=== PATIENT | female | born 1965 | race Caucasian/White ===

== ENCOUNTER → 2016-12-20 | Outpatient (CLI) | payer OTHER ==
--- NOTE | 2016-12-22 09:05 | MM ---
Reason for exam: screening (asymptomatic). Last mammogram was performed 1 year and 3 months ago. History: Patient is postmenopausal. Physical Findings: A clinical breast exam by your physician is recommended on an annual basis and results should be correlated with mammographic findings. MG Screening Mammo w CAD Bilateral CC and MLO view(s) were taken. Prior study comparison: September 04, 2015, bilateral MG screening mammo w CAD. May 08, 2014, bilateral MG screening mammo w CAD. The breast tissue is heterogeneously dense. This may lower the sensitivity of mammography. No significant changes when compared with prior studies. ASSESSMENT: Benign, BI-RAD 2 RECOMMENDATION: Routine screening mammogram of both breasts in 1 year.
== END | disposition home or self-care (01) ==
LOC: RADMAMWWP 16:32
PROVIDERS: ATTEND Obstetrics & Gynecology
DX: Z12.31 Encounter for screening mammogram for malignant neoplasm of breast (principal)

== ENCOUNTER → 2017-02-17 | Outpatient (CLI) | payer OTHER ==
--- NOTE | 2017-02-17 12:07 | XR ---
EXAMINATION TYPE: XR chest 2V DATE OF EXAM: 02/17/2017 11:50 AM COMPARISON: NONE TECHNIQUE: PA and lateral views submitted. HISTORY: Cough FINDINGS: The lungs are clear and there is no pneumothorax, pleural effusion, or focal pneumonia. Hyperinflat ion suggests COPD. IMPRESSION: 1. No acute process.
[2017-02-17 12:42] LABS: Basophils % (A) 1 %; CH 29.3; CHCM 32.5; Eosinophils # (A) 0.2 k/uL (0-0.7); Eosinophils % (A) 2 %; HCT 40.5 % (34.0-46.0); HDW 2.66; HGB 13.2 gm/dL (11.4-16.0); Luc # (Auto) 0.11; Luc % (Auto) 2; Lymphocytes # (A) 1.6 k/uL (1.0-4.8); Lymphocytes % (A) 24 %; MCH 29.6 pg (25.0-35.0); MCHC 32.6 g/dL (31.0-37.0); MCV 90.8 fL (80.0-100.0); Mean Platelet Volume 7.7; Monocytes # (A) 0.3 k/uL (0-1.0); Monocytes % (A) 5 %; Neutrophils # (A) 4.5 k/uL (1.3-7.7); Neutrophils % (A) 67 %; RBC 4.46 m/uL (3.80-5.40); WBC 6.7 k/uL (3.8-10.6); WBC (Perox) 7.23
== END | disposition home or self-care (01) ==
LOC: RADXRMAIN 11:21
PROVIDERS: ATTEND Allergy & Immunology
DX: Z09 Encounter for follow-up examination after completed treatment for conditions other than malignant neoplasm (principal); Z87.891 Personal history of nicotine dependence
CPT/HCPCS: 71020; 85025

== ENCOUNTER 2017-04-19 20:49 | Emergency (ER) | payer OTHER ==
[2017-04-19 21:18] VITALS: BP 141/77; PULSE 86; RESP 18; TEMP 98.6
--- NOTE | 2017-04-19 22:11 | XR ---
EXAM: XR Left Wrist, 2 Views CLINICAL HISTORY: Reason: Pain TECHNIQUE: Frontal and lateral views of the left wrist. COMPARISON: No relevant prior studies available. FINDINGS: Bones/joints: Unremarkable. No acute fracture. No dislocation. Soft tissues: Unremarkable. No radiopaque foreign body. IMPRESSION: No acute osseous abnormality of the left wrist.
--- NOTE | 2017-04-19 22:21 | ED ---
Extremity Problem HPI - General Chief complaint: Extremity Problem,Nontraumatic Stated complaint: left wrist injury Time Seen by Provider: 04/19/17 21:45 Source: patient, RN notes reviewed, old records reviewed Mode of arrival: ambulatory Limitations: no limitations - History of Present Illness Initial comments: This is a 51-year-old female presenting to emergency department with 2 weeks of left lateral wrist pain. 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 Patient reports that the pain is worse with flexion and extension of her thumb. Patient states that mainly over the radial head which she has the pain. Denies any fever or chills or other associated symptoms. states that she has no numbness or tingling down her hands or fingers. - Related Data Home Medications Medication Instructions Recorded Confirmed Latanoprost Ophth [Xalatan 0.005%] 1 drops BOTH EYES HS 06/22/15 04/19/17 Meloxicam [Mobic] 7.5 mg PO HS 06/22/15 04/19/17 Atorvastatin Calcium [Lipitor] 10 mg PO HS 02/19/16 04/19/17 DULoxetine HCL [Cymbalta] 30 mg PO BID 02/19/16 04/19/17 oxyCODONE HCL/ACETAMINOPHEN 1 tab PO Q4-6H PRN 03/10/16 04/19/17 [Percocet 5-325 mg] Budesonide/Formoterol Fumarate 2 puff INHALATION RT-BID 04/19/17 04/19/17 [Symbicort 160-4.5 Mcg Inhaler] Previous Rx's Medication Instructions Recorded Ibuprofen [Motrin] 600 mg PO Q6HR PRN #20 tab 04/19/17 traMADol HCl [Ultram] 50 mg PO Q4H PRN #15 tab 04/19/17 Allergies Allergy/AdvReac Type Severity Reaction Status Date / Time cat dander Allergy Unknown Verified 04/19/17 22:14 celery Allergy Unknown Verified 04/19/17 22:14 grass pollen Allergy Unknown Verified 04/19/17 22:14 tree and shrub pollen Allergy Unknown Verified 04/19/17 22:14 tree nut Allergy Unknown Verified 04/19/17 22:14 TUNA FISH Allergy Unknown Uncoded 04/19/17 22:14 Review of Systems ROS Statement: Those systems with pertinent positive or pertinent negative responses have been documented in the HPI. ROS Other: All systems not noted in ROS Statement are negative. Past Medical History Past Medical History: Hyperlipidemia, Osteoarthritis (OA), Rheumatoid Arthritis (RA) Additional Past Medical History / Comment(s): migraines, see Dr Sánchez H&P, "fainting spells", frequent urination depression anxiety History of Any Multi-Drug Resistant Organisms: None Reported Past Surgical History: Section, Tubal Ligation Past Anesthesia/Blood Transfusion Reactions: No Reported Reaction Past Psychological History: Anxiety, Depression Smoking Status: Current every day smoker Past Alcohol Use History: None Reported Additional Past Alcohol Use History / Comment(s): smokes 1/2 PPD, has smoked for >20 yrs Past Drug Use History: None Reported - Past Family History Mother Family Medical History: No Reported History General Exam - General Exam Comments Initial Comments: Pleasant 51-year-old female. No acute distress. Limitations: no limitations General appearance: alert, in no apparent distress Head exam: Present: atraumatic, normocephalic, normal inspection Eye exam: Present: normal appearance, PERRL, EOMI. Absent: scleral icterus, conjunctival injection, periorbital swelling ENT exam: Present: normal exam, mucous membranes moist Neck exam: Present: normal inspection. Absent: tenderness, meningismus, lymphadenopathy Respiratory exam: Present: normal lung sounds bilaterally. Absent: respiratory distress, wheezes, rales, rhonchi, stridor Cardiovascular Exam: Present: regular rate, normal rhythm, normal heart sounds. Absent: systolic murmur, diastolic murmur, rubs, gallop, clicks GI/Abdominal exam: Present: soft, normal bowel sounds. Absent: distended, tenderness, guarding, rebound, rigid Extremities exam: Present: normal inspection, full ROM, normal capillary refill , other (Patient is tender over the left radial head and thumb. Positive Bobo test consistent with de Quervain's tenosynovitis.). Absent: tenderness, pedal edema, joint swelling, calf tenderness Back exam: Present: normal inspection Neurological exam: Present: alert, oriented X3, CN II-XII intact Psychiatric exam: Present: normal affect Skin exam: Present: warm, dry, intact, normal color. Absent: rash Course Vital Signs 04/19/17 21:15 Temperature 98.6 F Pulse Rate 86 Respiratory 18 Rate Blood Pressure 141/77 O2 Sat by Pulse 97 Oximetry Medical Decision Making - Medical Decision Making This is-year-old [employer] chief complaint of left thumb and wrist pain for the past 2 weeks. 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 Patient has a positive Bobo's test consistent with de Quervain's tenosynovitis. X-rays reviewed and negative for any acute process. Patient was placed in a small thumb spica splint. Patient has been advised to take anti-inflammatory medicine apply ice over the area. Discussed that she can also see orthopedic physician for a proper splint bending. Patient understands treatment plan will comply. Return parameters were discussed. - Radiology Data Radiology results: report reviewed X-ray negative for any acute process. Disposition Clinical Impression: De Quervain's tenosynovitis, left Disposition: HOME SELF-CARE Condition: Good Instructions: De Quervain Disease (ED), Tenosynovitis (ED) Additional Instructions: Patient has a follow-up with orthopedic physician. Take medication anti- inflammatory medicine. Return to the emergency department if any alarming signs or symptoms occur. Prescriptions: Ibuprofen [Motrin] 600 mg PO Q6HR PRN #20 tab PRN Reason: Pain traMADol HCl [Ultram] 50 mg PO Q4H PRN #15 tab PRN Reason: Pain Referrals: Mendy Thomas MD [Primary Care Provider] - 1-2 days Stevie Torrez DO [Doctor of Osteopathic Medicine] - 1-2 days Time of Disposition: 22:19
== END 2017-04-19 22:30 | disposition home or self-care (01) ==
LOC: EC 20:49
DX: M65.4 Radial styloid tenosynovitis [de Quervain] (principal); E78.5 Hyperlipidemia, unspecified; M19.90 Unspecified osteoarthritis, unspecified site; F32.9 Major depressive disorder, single episode, unspecified; F17.200 Nicotine dependence, unspecified, uncomplicated; Z79.1 Long term (current) use of non-steroidal anti-inflammatories (NSAID); Z79.51 Long term (current) use of inhaled steroids; Z79.899 Other long term (current) drug therapy
CPT/HCPCS: 99283

== ENCOUNTER 2017-12-31 22:48 | Emergency (ER) | payer OTHER ==
[2017-12-31 23:00] VITALS: BP 131/85; PULSE 84; RESP 20; TEMP 98.3
[2017-12-31] MEDS ORDERED: KETOROLAC 60 MG/2 ML VIAL IM STA (23:05)
--- NOTE | 2017-12-31 23:08 | ED ---
General Adult HPI - General Chief complaint: Extremity Problem,Nontraumatic Stated complaint: Hand Injury/pain Time Seen by Provider: 12/31/17 23:00 Source: patient, RN notes reviewed Mode of arrival: ambulatory Limitations: no limitations - History of Present Illness Initial comments: This is a 52-year-old female presents emergency Department complaining of some right third MCP pain. Patient states she's been doing the job all week and she uses the back of her hand to pull material tight and she thinks she has strained that joint because there is a little bit swollen and tender to palpation. Patient thinks there is no way she could've possibly broke and he think she never had any direct trauma to that area. Patient denies any rate can the skin. Patient denies any redness. Patient denies any fever chills per patient denies any other problems at this time. - Related Data Home Medications Medication Instructions Recorded Confirmed Latanoprost Ophth [Xalatan 0.005%] 1 drops BOTH EYES HS 06/22/15 12/31/17 Meloxicam [Mobic] 7.5 mg PO HS 06/22/15 12/31/17 Atorvastatin Calcium [Lipitor] 10 mg PO HS 02/19/16 12/31/17 DULoxetine HCL [Cymbalta] 30 mg PO BID 02/19/16 12/31/17 oxyCODONE HCL/ACETAMINOPHEN 1 tab PO Q4-6H PRN 03/10/16 12/31/17 [Percocet 5-325 mg] Budesonide/Formoterol Fumarate 2 puff INHALATION RT-BID 04/19/17 12/31/17 [Symbicort 160-4.5 Mcg Inhaler] Previous Rx's Medication Instructions Recorded Ibuprofen [Motrin] 600 mg PO Q6HR PRN #20 tab 04/19/17 Allergies Allergy/AdvReac Type Severity Reaction Status Date / Time cat dander Allergy Unknown Verified 04/19/17 22:14 celery Allergy Unknown Verified 04/19/17 22:14 grass pollen Allergy Unknown Verified 04/19/17 22:14 tree and shrub pollen Allergy Unknown Verified 04/19/17 22:14 tree nut Allergy Unknown Verified 04/19/17 22:14 TUNA FISH Allergy Unknown Uncoded 04/19/17 22:14 Review of Systems ROS Statement: Those systems with pertinent positive or pertinent negative responses have been documented in the HPI. ROS Other: All systems not noted in ROS Statement are negative. Past Medical History Past Medical History: Hyperlipidemia, Osteoarthritis (OA), Rheumatoid Arthritis (RA) Additional Past Medical History / Comment(s): migraines, see Dr Sánchez H&P, "fainting spells", frequent urination depression anxiety History of Any Multi-Drug Resistant Organisms: None Reported Past Surgical History: Section, Tubal Ligation Past Anesthesia/Blood Transfusion Reactions: No Reported Reaction Past Psychological History: Anxiety, Depression Smoking Status: Current every day smoker Past Alcohol Use History: None Reported Past Drug Use History: None Reported - Past Family History Mother Family Medical History: No Reported History General Exam - General Exam Comments Initial Comments: GENERAL Patient is well-developed and well-nourished. Patient is in mild distress. EYES Patient's pupils are equal and round. Extraocular motion is intact SKIN Unremarkable NEURO The patient is alert and oriented 3 PYSCH Patient has normal interpersonal interactions. MUSCULOSKELETAL Right hand at the third MCP is slightly tender to touch and mildly swollen. There is no redness. Patient has full range of motion. Limitations: no limitations Course Vital Signs 12/31/17 22:57 Temperature 98.3 F Pulse Rate 84 Respiratory 20 Rate Blood Pressure 131/85 O2 Sat by Pulse 95 Oximetry Disposition Clinical Impression: Hand sprain Disposition: HOME SELF-CARE Condition: Good Instructions: Sprain (ED) Additional Instructions: Patient should take 600 mg of Motrin every 6 hours. Patient should not do a job that entails any duress to that right hand Referrals: Benito Hernandez MD [Primary Care Provider] - 1-2 days Time of Disposition: 23:06
== END 2017-12-31 23:36 | disposition home or self-care (01) ==
LOC: EC 22:48
DX: S63.91XA Sprain of unspecified part of right wrist and hand, initial encounter (principal); E78.5 Hyperlipidemia, unspecified; M06.9 Rheumatoid arthritis, unspecified; F32.9 Major depressive disorder, single episode, unspecified; F41.9 Anxiety disorder, unspecified; F17.200 Nicotine dependence, unspecified, uncomplicated; Z79.1 Long term (current) use of non-steroidal anti-inflammatories (NSAID); Z79.51 Long term (current) use of inhaled steroids; Z79.899 Other long term (current) drug therapy; Z91.018 Allergy to other foods; Z91.048 Other nonmedicinal substance allergy status; Z91.09 Other allergy status, other than to drugs and biological substances
CPT/HCPCS: 99283; 96372; J1885

== ENCOUNTER 2018-02-21 11:59 | Day surgery (SDC) | payer OTHER ==
[2018-02-16 13:31] VITALS: BMI 21.9
[~2018-02-21 11:59] MED LIST: LACTATED RINGERS 1,000 ML IV SCH
[2018-02-21 12:53] VITALS: RESP 18; TEMP 97.9
[2018-02-21] MEDS ORDERED: LIDOCAINE 1% 20 ML VIAL (10MG/ML) FOR IV START INTRADERMA ONE (12:55)
[2018-02-21] MEDS ORDERED: LIDOCAINE 1% INJ 10MG/ML (20 ML MDV) ONE (13:46)
[2018-02-21] MEDS ORDERED: PROPOFOL 10 MG/ML 20 ML VIAL IV ONE (13:46)
--- NOTE | 2018-02-21 14:29 | P.PCN ---
Date of Procedure: 02/21/18 Procedure(s) Performed: Procedure: Colonoscopy and biopsy. Preoperative diagnosis: Intermittent diarrhea and rectal bleeding. Postoperative diagnosis: 1. Low-grade internal hemorrhoids not bleeding at the time of this exam, otherwise, exam to the cecum within normal limits. 2. Biopsies obtained from the right colon to rule out microscopic colitis. Preparation: HalfLytely prep. Sedation: Was provided by anesthesia. Brief clinical history: The patient is a 52-year-old female who is referred for this evaluation because of intermittent diarrhea since April of last year with intermittent episodes of rectal bleeding. This evaluation to assess for inflammatory bowel disease or neoplasia. Procedure: With the patient on her left lateral decubitus position and after informed consent and adequate sedation, the perianal area was inspected and it did not show any fissures or fistulas. There were no masses felt on digital rectal examination. The Olympus CFQ 160L video colonoscope was then inserted in the rectum in the usual fashion and advanced to the cecum. I was not able to intubate the ileocecal valve. The colon did not show any edema, erythema, friability, ulceration, exudation or spontaneous bleeding. No polyps or tumors were seen or any obvious diverticular disease. I obtained biopsies from the right colon. Low-grade internal hemorrhoids were noted upon withdrawing the endoscope with no evidence of bleeding at the time of this exam. The patient tolerated the procedure well. Plan: The patient was reassured. Discussed dietary measures and local care for hemorrhoids. Further plans based on her course and biopsy results. She will follow-up with you as planned and we would be happy to see in the future if needed. For screening for colon cancer I recommended repeat exam in 10 years.
[2018-02-21 14:41] VITALS: BP 111/77; PULSE 80
== END 2018-02-21 15:17 | disposition home or self-care (01) ==
LOC: ORWHC2ENDO 11:59
DX: R19.7 Diarrhea, unspecified (principal); K64.8 Other hemorrhoids; R19.4 Change in bowel habit; M19.90 Unspecified osteoarthritis, unspecified site; E78.5 Hyperlipidemia, unspecified; J44.9 Chronic obstructive pulmonary disease, unspecified; F17.200 Nicotine dependence, unspecified, uncomplicated; Z79.1 Long term (current) use of non-steroidal anti-inflammatories (NSAID); Z79.891 Long term (current) use of opiate analgesic; Z79.51 Long term (current) use of inhaled steroids; Z79.899 Other long term (current) drug therapy
CPT/HCPCS: 81025; 88305; 45380; J2001; J2704

== ENCOUNTER 2018-07-21 20:46 | Emergency (ER) | payer OTHER ==
[2018-07-21 20:59] VITALS: BP 113/83; PULSE 94; RESP 18; TEMP 98
--- NOTE | 2018-07-21 21:24 | ED ---
Lower Extremity Injury HPI - General Chief Complaint: Extremity Injury, Lower Stated Complaint: Knee Pain Time Seen by Provider: 07/21/18 21:04 Source: patient Mode of arrival: ambulatory Limitations: no limitations - History of Present Illness Initial Comments: Gris is a 52 yo female who presents to the ED today for evaluation of left knee pain. Patient reports that earlier today she was walking her dog and not paying attention to where she was walking when she tripped, she did not fall to the ground but felt a sudden pain in her left knee. Patient reports that since that time she has been resting her knee but is experiencing persistent throbbing pain in the knee. Patient reports approximately 4 years ago she had a knee injury in which she dislocated her patella and subsequently had to have a arthroscopy and ligamentous repair of the same knee that she injured today. Patient states that she has not tried to ice or elevate the leg. She has not taken Tylenol Motrin. Patient reports that she suffers from chronic diarrhea and that both Tylenol and Motrin cause her to have blood in her stool. She states that she can only take Percocet for pain which she has a prescription for home, however she did not take any prior to arrival. - Related Data Home Medications Medication Instructions Recorded Confirmed Latanoprost Ophth [Xalatan 0.005%] 1 drops BOTH EYES HS 06/22/15 02/16/18 DULoxetine HCL [Cymbalta] 30 mg PO DAILY 02/19/16 02/16/18 Budesonide/Formoterol Fumarate 2 puff INHALATION BID 04/19/17 02/16/18 [Symbicort 160-4.5 Mcg Inhaler] Meloxicam [Mobic] 15 mg PO DAILY 02/16/18 02/16/18 oxyCODONE HCL/ACETAMINOPHEN 1 tab PO QID PRN 02/16/18 02/16/18 [Percocet 7.5-325 mg] Allergies Allergy/AdvReac Type Severity Reaction Status Date / Time cat dander Allergy Unknown Verified 07/21/18 20:59 celery Allergy Unknown Verified 07/21/18 20:59 grass pollen Allergy Unknown Verified 07/21/18 20:59 tree and shrub pollen Allergy Unknown Verified 07/21/18 20:59 tree nut Allergy Unknown Verified 07/21/18 20:59 TUNA FISH Allergy Unknown Uncoded 08/31/18 20:59 Review of Systems ROS Statement: Those systems with pertinent positive or pertinent negative responses have been documented in the HPI. ROS Other: All systems not noted in ROS Statement are negative. Past Medical History Past Medical History: COPD, Osteoarthritis (OA) Additional Past Medical History / Comment(s): . History of Any Multi-Drug Resistant Organisms: None Reported Past Surgical History: Section, Orthopedic Surgery Additional Past Surgical History / Comment(s): left knee arthroscopy Past Anesthesia/Blood Transfusion Reactions: Postoperative Nausea & Vomiting ( PONV) Past Psychological History: Anxiety, Depression Smoking Status: Current every day smoker Past Alcohol Use History: None Reported Past Drug Use History: None Reported - Past Family History Mother Family Medical History: No Reported History General Exam - General Exam Comments Initial Comments: GENERAL: Patient is well-developed and well-nourished. Patient is nontoxic and well- hydrated and is in no distress. HENT: Normocephalic, Atraumatic. Neck is soft and supple. No significant lymphadenopathy is noted. Oropharynx is clear. Neck has full range of motion without eliciting any pain. EYES: The sclera were anicteric and conjunctiva were pink and moist. Extraocular movements were intact and pupils were equal round and reactive to light. Eyelids were unremarkable. PULMONARY: Unlabored respirations. Good breath sounds bilaterally. No audible rales rhonchi noted. Mild wheezing noted CARDIOVASCULAR: There is a regular rate and rhythm without any murmurs gallops or rubs. ABDOMEN: Soft and nontender with normal bowel sounds. SKIN: Skin is clear with no lesions or rashes and otherwise unremarkable. Skin changes on hands consistent with tobacco smoking NEUROLOGIC: Patient is alert and oriented x3. Motor and sensory are also intact. Normal speech, volume and content. Symmetrical smile. NOrmal strength in bilateral lower extremities MUSCULOSKELETAL: Normal extremities with adequate strength and full range of motion. No lower extremity swelling or edema. No calf tenderness. Negative anterior and posterior drawer signs, no ligamentous laxity can be elicited on exam Negative lochman and sarah tests LYMPHATICS: No significant lymphadenopathy is noted PSYCHIATRIC: Normal psychiatric evaluation. Limitations: no limitations Limitations: no limitations Course Vital Signs 07/21/18 20:55 Temperature 98 F Pulse Rate 94 Respiratory 18 Rate Blood Pressure 113/83 O2 Sat by Pulse 98 Oximetry Medical Decision Making - Medical Decision Making The patient was seen and evaluated, history obtained from patient Patient with a history of ligamentous injury to that knee presenting with pain after a trip in which she applied an awkward force but did not fall Minimal concern for bony injury, however will obtain an xray Offered the patient Motrin/Tylenol however the patient declined stating that she cannot take these, she only takes percocet Discussed supportive care including rest, ice, compression and elevation with patient, patient was given an ice pack X-rays with no acute fracture or dislocation noted Patient's lower extremity is neurovascularly intact, mechanism of injury is not consistent with a posterior knee dislocation I have no concern for vascular injury Results were discussed with patient who expresses relief. I advised the patient that x-rays do not rule out ligamentous or meniscal injury and that she should follow-up with her orthopedic surgeon she has seen in the past if she has persistent pain. Advised the patient that she can treat her pain with rest , ice, compression, elevation and whatever pain medication she can tolerate home. All questions pertaining care were answered best my ability, return parameters were discussed and the patient was discharged home in stable condition. Disposition Clinical Impression: Left knee pain Disposition: HOME SELF-CARE Condition: Good Instructions: Knee Sprain (ED), Knee Pain (ED) Is patient prescribed a controlled substance at d/c from ED?: No Referrals: Benito Hernandez MD [Primary Care Provider] - 1-2 days Time of Disposition: 21:51
--- NOTE | 2018-07-21 21:33 | XR ---
EXAMINATION TYPE: XR knee 4V LT DATE OF EXAM: 07/21/2018 COMPARISON: NONE HISTORY: Pain and injury TECHNIQUE: 4 views FINDINGS: There is no sign of fracture nor dislocation. Joint spaces are normal. There is no sign of joint effusion. IMPRESSION: Normal left knee.
== END 2018-07-21 22:02 | disposition home or self-care (01) ==
LOC: EC 20:46
DX: M25.562 Pain in left knee (principal); R19.7 Diarrhea, unspecified; J44.9 Chronic obstructive pulmonary disease, unspecified; F41.9 Anxiety disorder, unspecified; F32.9 Major depressive disorder, single episode, unspecified; M19.90 Unspecified osteoarthritis, unspecified site; F17.200 Nicotine dependence, unspecified, uncomplicated; Z79.51 Long term (current) use of inhaled steroids; Z79.899 Other long term (current) drug therapy; Z79.1 Long term (current) use of non-steroidal anti-inflammatories (NSAID); Z91.09 Other allergy status, other than to drugs and biological substances; Z91.018 Allergy to other foods; Z91.013 Allergy to seafood; W18.40XA Slipping, tripping and stumbling without falling, unspecified, initial encounter; Y93.K1 Activity, walking an animal
CPT/HCPCS: 99283

== ENCOUNTER → 2018-08-22 | Outpatient (CLI) | payer OTHER ==
--- NOTE | 2018-08-22 14:39 | XR ---
Thoracic spine HISTORY: Back pain 2 views of the thoracic spine submitted on 3 images There is a gentle S-shaped thoracic scoliosis. Mild multilevel spondylosis is present. Thoracic verte bral bodies show preserved height, alignment, and bone mineralization. Disc spaces are maintained. IMPRESSION: Thoracic spondylosis, mild spinal curvature.
== END | disposition home or self-care (01) ==
LOC: RADXRMAIN 10:50
PROVIDERS: ATTEND Internal Medicine
DX: M47.814 Spondylosis without myelopathy or radiculopathy, thoracic region (principal)
CPT/HCPCS: 72070

== ENCOUNTER 2018-11-04 11:24 | Emergency (ER) | payer OTHER ==
[2018-11-04 11:37] VITALS: TEMP 98.2
--- NOTE | 2018-11-04 12:26 | XR ---
EXAMINATION TYPE: XR shoulder complete RT , 3 VIEWS DATE OF EXAM ORDERED: 11/04/2018 HISTORY: Pain. COMPARISON: None. FINDINGS: No fracture, dislocation or other acute osseous lesion is seen. IMPRESSION: NO ACUTE OSSEOUS LESION.
--- NOTE | 2018-11-04 12:54 | ED ---
General Adult HPI - General Chief complaint: Extremity Injury, Upper Stated complaint: shoulder injury Time Seen by Provider: 11/04/18 11:51 Source: patient, RN notes reviewed Mode of arrival: ambulatory Limitations: no limitations - History of Present Illness Initial comments: Patient 53-year-old female presenting to the emergency room today with chief complaint of pain to the right shoulder. She admits that yesterday she picked up a laundry basket and when she went to stand up hit a doorknob with the shoulder blade on the right side. She states she's had pain since that injury. States it is worse with movements. She states she does take pain medicine at home has not been using ibuprofen. Denies any other complaints or symptoms. Patient denies any recent fever, chills, shortness of breath, chest pain, back pain, abdominal pain, nausea or vomiting, headaches or visual changes, or any other complaints. - Related Data Home Medications Medication Instructions Recorded Confirmed Latanoprost Ophth [Xalatan 0.005%] 1 drops BOTH EYES HS 06/22/15 02/16/18 DULoxetine HCL [Cymbalta] 30 mg PO DAILY 02/19/16 02/16/18 Budesonide/Formoterol Fumarate 2 puff INHALATION BID 04/19/17 02/16/18 [Symbicort 160-4.5 Mcg Inhaler] Meloxicam [Mobic] 15 mg PO DAILY 02/16/18 02/16/18 oxyCODONE HCL/ACETAMINOPHEN 1 tab PO QID PRN 02/16/18 02/16/18 [Percocet 7.5-325 mg] Allergies Allergy/AdvReac Type Severity Reaction Status Date / Time cat dander Allergy Unknown Verified 11/04/18 11:37 celery Allergy Unknown Verified 11/04/18 11:37 grass pollen Allergy Unknown Verified 11/04/18 11:37 tree and shrub pollen Allergy Unknown Verified 11/04/18 11:37 tree nut Allergy Unknown Verified 11/04/18 11:37 TUNA FISH Allergy Unknown Uncoded 11/04/18 11:37 Review of Systems ROS Statement: Those systems with pertinent positive or pertinent negative responses have been documented in the HPI. ROS Other: All systems not noted in ROS Statement are negative. Past Medical History Past Medical History: COPD, Osteoarthritis (OA) Additional Past Medical History / Comment(s): . History of Any Multi-Drug Resistant Organisms: None Reported Past Surgical History: Section, Orthopedic Surgery Additional Past Surgical History / Comment(s): left knee arthroscopy Past Anesthesia/Blood Transfusion Reactions: Postoperative Nausea & Vomiting ( PONV) Past Psychological History: Anxiety, Depression Smoking Status: Current every day smoker Past Alcohol Use History: None Reported Past Drug Use History: None Reported - Past Family History Mother Family Medical History: No Reported History General Exam - General Exam Comments Initial Comments: General: The patient is awake and alert, in no distress, and does not appear acutely ill. Eye: Pupils are equal, round and reactive to light, extra-ocular movements are intact. No nystagmus. There is normal conjunctiva bilaterally. No signs of icterus. Ears, nose, mouth and throat: There are moist mucous membranes and no oral lesions. Neck: The neck is supple, there is no tenderness or JVD. Cardiovascular: There is a regular rate and rhythm. No murmur, rub or gallop is appreciated. Respiratory: Lungs are clear to auscultation, respirations are non-labored, breath sounds are equal. No wheezes, stridor, rales, or rhonchi. Musculoskeletal: Normal appearance the right shoulder obvious deformity. Patient shows limited range of motion due to pain. Tender to palpation over the posterior aspect. Patient shows good range of motion of the right elbow, wrist is able flex and extend. Strength 5/5. Sensation intact. Pulses equal bilaterally 2+. Neurological: A&O x 3. CN II-XII intact, There are no obvious motor or sensory deficits. Coordination appears grossly intact. Speech is normal. Skin: Skin is warm and dry and no rashes or lesions are noted. Psychiatric: Cooperative, appropriate mood & affect, normal judgment. Limitations: no limitations Course Vital Signs 11/04/18 11:35 Temperature 98.2 F Pulse Rate 78 Respiratory 16 Rate Blood Pressure 137/96 O2 Sat by Pulse 97 Oximetry Medical Decision Making - Medical Decision Making Patient's x-ray reviewed and is negative for any acute abnormality. Results were discussed with the patient. Patient advised to ice the affected area. Advised follow-up with orthopedics if symptoms persist over the next week. Advised using ibuprofen Disposition Clinical Impression: Shoulder contusion Disposition: HOME SELF-CARE Condition: Good Instructions: Contusion in Adults (ED) Additional Instructions: Please follow-up in 7-10 days for repeat x-rays if symptoms persist. Please continue to ice elevate the affected area at least 4 times daily for 20 minutes at a time. Please return to emergency room for any other concerns. Is patient prescribed a controlled substance at d/c from ED?: No Referrals: Benito Hernandez MD [Primary Care Provider] - 1-2 days Time of Disposition: 12:54
[2018-11-04 13:37] VITALS: BP 133/92; PULSE 74; RESP 18
== END 2018-11-04 13:30 | disposition home or self-care (01) ==
LOC: EC 11:24
DX: S40.011A Contusion of right shoulder, initial encounter (principal); F32.9 Major depressive disorder, single episode, unspecified; F41.9 Anxiety disorder, unspecified; M19.90 Unspecified osteoarthritis, unspecified site; J44.9 Chronic obstructive pulmonary disease, unspecified; F17.200 Nicotine dependence, unspecified, uncomplicated; Z79.51 Long term (current) use of inhaled steroids; Z79.1 Long term (current) use of non-steroidal anti-inflammatories (NSAID); Z79.899 Other long term (current) drug therapy; Z91.09 Other allergy status, other than to drugs and biological substances; Z91.048 Other nonmedicinal substance allergy status; Z91.018 Allergy to other foods; Z91.013 Allergy to seafood
CPT/HCPCS: 99283

== ENCOUNTER 2019-07-12 20:59 | Emergency (ER) | payer OTHER ==
[2019-07-12 21:09] VITALS: BP 119/83
[2019-07-12] MEDS ORDERED: ONDANSETRON ODT 4 MG TAB PO STA (21:16)
[2019-07-12] MEDS ORDERED: DIPH,PERTUS(ACELL)TETVAC-LF 0.5 ML VIAL IM ONE (21:16)
--- NOTE | 2019-07-12 21:26 | ED ---
Upper Extremity HPI - General Chief Complaint: Extremity Injury, Upper Stated Complaint: Hand injury Time Seen by Provider: 07/12/19 21:11 Source: patient, RN notes reviewed Mode of arrival: ambulatory Limitations: no limitations - History of Present Illness Initial Comments: 53-year-old female presented to the ER for right hand puncture wound. Patient states she was at work piece of plastic punctured her right thumb region. Patient states that it is painful and she became very nauseated from the pain. Patient states his happened in the past. Denies any chest pain no palpitations no abdominal pain. Patient is unsure when her last tetanus was. - Related Data Home Medications Medication Instructions Recorded Confirmed Latanoprost Ophth [Xalatan 0.005%] 1 drops BOTH EYES HS 06/22/15 02/16/18 DULoxetine HCL [Cymbalta] 30 mg PO DAILY 02/19/16 02/16/18 Budesonide/Formoterol Fumarate 2 puff INHALATION BID 04/19/17 02/16/18 [Symbicort 160-4.5 Mcg Inhaler] Meloxicam [Mobic] 15 mg PO DAILY 02/16/18 02/16/18 oxyCODONE HCL/ACETAMINOPHEN 1 tab PO QID PRN 02/16/18 02/16/18 [Percocet 7.5-325 mg] Allergies Allergy/AdvReac Type Severity Reaction Status Date / Time cat dander Allergy Unknown Verified 07/12/19 21:09 celery Allergy Unknown Verified 07/12/19 21:09 grass pollen Allergy Unknown Verified 07/12/19 21:09 tree and shrub pollen Allergy Unknown Verified 07/12/19 21:09 tree nut Allergy Unknown Verified 07/12/19 21:09 TUNA FISH Allergy Unknown Uncoded 07/12/19 21:09 Review of Systems ROS Statement: Those systems with pertinent positive or pertinent negative responses have been documented in the HPI. ROS Other: All systems not noted in ROS Statement are negative. Past Medical History Past Medical History: COPD, Osteoarthritis (OA) Additional Past Medical History / Comment(s): . History of Any Multi-Drug Resistant Organisms: None Reported Past Surgical History: Section, Orthopedic Surgery Additional Past Surgical History / Comment(s): left knee arthroscopy Past Anesthesia/Blood Transfusion Reactions: Postoperative Nausea & Vomiting (PONV) Past Psychological History: Anxiety, Depression Smoking Status: Current every day smoker Past Alcohol Use History: None Reported Past Drug Use History: None Reported - Past Family History Mother Family Medical History: No Reported History General Exam Limitations: no limitations General appearance: alert, in no apparent distress Head exam: Present: atraumatic, normocephalic, normal inspection Respiratory exam: Present: normal lung sounds bilaterally. Absent: respiratory distress, wheezes, rales, rhonchi, stridor Cardiovascular Exam: Present: regular rate, normal rhythm, normal heart sounds. Absent: systolic murmur, diastolic murmur, rubs, gallop, clicks GI/Abdominal exam: Present: soft, normal bowel sounds. Absent: distended, tenderness, guarding, rebound, rigid Extremities exam: Present: other (Right thenar eminence there is a puncture wound and hematoma noted full range of motion neurovascular intact full strength) Neurological exam: Present: alert, oriented X3, CN II-XII intact Skin exam: Present: warm, dry, intact, normal color. Absent: rash Course Vital Signs 07/12/19 21:08 Temperature 98.4 F Pulse Rate 83 Respiratory 18 Rate Blood Pressure 119/83 O2 Sat by Pulse 98 Oximetry Medical Decision Making - Medical Decision Making 53-year-old female presented for puncture wound to her right hand. There is small hematoma there is no signs of infection tetanus is updated. We did discuss signs and symptoms of infection do not feel she needs antibiotics this time. She will follow-up with workman's comp and return for any worsening symptoms. Disposition Clinical Impression: Traumatic hematoma of right hand, Puncture wound of right hand Disposition: HOME SELF-CARE Condition: Stable Instructions (If sedation given, give patient instructions): Puncture Wound (ED) Additional Instructions: Return for any signs or symptoms of infection.Please return to the Emergency Department if symptoms worsen or any other concerns. Is patient prescribed a controlled substance at d/c from ED?: No Referrals: Benito Hernandez MD [Primary Care Provider] - 1-2 days Time of Disposition: 22:03
--- NOTE | 2019-07-12 22:01 | XR ---
EXAMINATION TYPE: XR hand complete RT DATE OF EXAM: 07/12/2019 COMPARISON: NONE HISTORY: Puncture wound. Pain. TECHNIQUE: 3 views FINDINGS: Metacarpals appear intact. I see no fracture nor dislocation. There is no sign of radiopaqu e foreign body. Joint spaces are normal. IMPRESSION: Negative right hand exam.
[2019-07-12 22:25] VITALS: PULSE 86; RESP 16; TEMP 96.9
== END 2019-07-12 22:20 | disposition home or self-care (01) ==
LOC: EC 20:59
DX: S61.431A Puncture wound without foreign body of right hand, initial encounter (principal); R11.0 Nausea; J44.9 Chronic obstructive pulmonary disease, unspecified; M19.90 Unspecified osteoarthritis, unspecified site; F41.9 Anxiety disorder, unspecified; F32.9 Major depressive disorder, single episode, unspecified; F17.200 Nicotine dependence, unspecified, uncomplicated; Z23 Encounter for immunization; Z79.51 Long term (current) use of inhaled steroids; Z79.1 Long term (current) use of non-steroidal anti-inflammatories (NSAID); Z79.899 Other long term (current) drug therapy; Z91.048 Other nonmedicinal substance allergy status; Z91.018 Allergy to other foods; Z91.013 Allergy to seafood; W22.8XXA Striking against or struck by other objects, initial encounter; Y92.69 Other specified industrial and construction area as the place of occurrence of the external cause; Y99.0 Civilian activity done for income or pay
CPT/HCPCS: 90471; 90715; 99283

== ENCOUNTER 2019-12-22 13:11 | Emergency (ER) | payer OTHER ==
[2019-12-22] MEDS ORDERED: methylPREDNISolone SOD SUCCI 125 MG/2 ML VIAL IM ONE (14:47)
[2019-12-22] MEDS ORDERED: IPRATROPIUM-ALBUTEROL 3 ML NEB INHALATION STA (14:47)
--- NOTE | 2019-12-22 15:17 | XR ---
EXAMINATION TYPE: XR chest 2V DATE OF EXAM: 12/22/2019 COMPARISON: 02/17/2017 HISTORY: 54-year-old female with cough TECHNIQUE: PA and lateral views FINDINGS: The cardiomediastinal silhouette, aorta, and pulmonary vasculature are within normal limits. Mild hyp erinflation. Minimal opacity adjacent to the left heart margin. IMPRESSION: Possible underlying COPD. Some minimal opacity adjacent to the cardiac apex could represent some ling ular atelectasis or an early lingular infiltrate.
--- NOTE | 2019-12-22 15:35 | ED ---
ENT HPI - General Chief complaint: ENT Stated complaint: Sore throat Time Seen by Provider: 12/22/19 14:15 Source: patient, RN notes reviewed, old records reviewed Mode of arrival: ambulatory Limitations: no limitations - History of Present Illness Initial comments: 54-year-old female presents emergency room stating she went to excessive sore throat. She reports that it feels the back of her throat is swollen. She reports some pain with swallowing. She denies any choking episodes. Patient states she is also been dealing with a cough. Does have history of COPD and is a smoker. Patient relates that she's had intermittent chills and no specific fevers. Patient has had no other complaints. - Related Data Home Medications Medication Instructions Recorded Confirmed Latanoprost Ophth [Xalatan 0.005%] 1 drops BOTH EYES HS 06/22/15 02/16/18 DULoxetine HCL [Cymbalta] 30 mg PO DAILY 02/19/16 02/16/18 Budesonide/Formoterol Fumarate 2 puff INHALATION BID 04/19/17 02/16/18 [Symbicort 160-4.5 Mcg Inhaler] Meloxicam [Mobic] 15 mg PO DAILY 02/16/18 02/16/18 oxyCODONE HCL/ACETAMINOPHEN 1 tab PO QID PRN 02/16/18 02/16/18 [Percocet 7.5-325 mg] Previous Rx's Medication Instructions Recorded Albuterol Inhaler [Ventolin Hfa 1 - 2 puff INHALATION RT-Q6H PRN 12/22/19 Inhaler] #1 inhaler Azithromycin [Zithromax Z-pack] 250 mg PO DIRECTED #6 tab 12/22/19 predniSONE 50 mg PO DAILY #5 tab 12/22/19 Allergies Allergy/AdvReac Type Severity Reaction Status Date / Time cat dander Allergy Unknown Verified 12/22/19 13:23 celery Allergy Unknown Verified 12/22/19 13:23 grass pollen Allergy Unknown Verified 12/22/19 13:23 tree and shrub pollen Allergy Unknown Verified 12/22/19 13:23 tree nut Allergy Unknown Verified 12/22/19 13:23 TUNA FISH Allergy Unknown Uncoded 12/22/19 13:23 Review of Systems ROS Statement: Those systems with pertinent positive or pertinent negative responses have been documented in the HPI. ROS Other: All systems not noted in ROS Statement are negative. Past Medical History Past Medical History: COPD, Osteoarthritis (OA) Additional Past Medical History / Comment(s): . History of Any Multi-Drug Resistant Organisms: None Reported Past Surgical History: Section, Orthopedic Surgery Additional Past Surgical History / Comment(s): left knee arthroscopy Past Anesthesia/Blood Transfusion Reactions: Postoperative Nausea & Vomiting (PONV) Past Psychological History: Anxiety, Depression Smoking Status: Current every day smoker Past Alcohol Use History: None Reported Past Drug Use History: None Reported - Past Family History Mother Family Medical History: No Reported History General Exam - General Exam Comments Initial Comments: 54-year-old female. Alert and oriented 3. No significant distress. Limitations: no limitations General appearance: alert, in no apparent distress Head exam: Present: atraumatic, normocephalic, normal inspection Eye exam: Present: normal appearance, PERRL, EOMI. Absent: scleral icterus, conjunctival injection, periorbital swelling ENT exam: Present: normal exam, mucous membranes moist. Absent: normal oropharynx (Symptoms are intact. Mildly swollen uvula.) Neck exam: Present: normal inspection. Absent: tenderness, meningismus, lymphadenopathy Respiratory exam: Present: wheezes (Patient has wheezing some right lower lobe.). Absent: normal lung sounds bilaterally, respiratory distress, rales, rhonchi, stridor Cardiovascular Exam: Present: regular rate, normal rhythm, normal heart sounds. Absent: systolic murmur, diastolic murmur, rubs, gallop, clicks GI/Abdominal exam: Present: soft, normal bowel sounds. Absent: distended, tenderness, guarding, rebound, rigid Extremities exam: Present: normal inspection, full ROM, normal capillary refill. Absent: tenderness, pedal edema, joint swelling, calf tenderness Back exam: Present: normal inspection Neurological exam: Present: alert, oriented X3, CN II-XII intact Psychiatric exam: Present: normal affect, normal mood Skin exam: Present: warm, dry, intact, normal color. Absent: rash Course Vital Signs 12/22/19 12/22/19 12/22/19 13:21 14:55 15:04 Temperature 98.5 F Pulse Rate 76 68 72 Respiratory 16 Rate Blood Pressure 133/97 O2 Sat by Pulse 96 Oximetry 12/22/19 15:46 Temperature 97.9 F Pulse Rate 84 Respiratory 18 Rate Blood Pressure 147/96 O2 Sat by Pulse 96 Oximetry Medical Decision Making - Medical Decision Making 54-year-old female with history of COPD, 2 weeks of sore throat and cough congestion. Patient has no fever at this time. Patient have wheezing on exam. Was given IM Solu-Medrol and breathing treatments. On reevaluation she is resting comfortably but has no further wheezing. She does have an erythematous oropharynx. Rapid strep test is negative. Patient's chest x-ray shows concern for possible lingular atelectasis or early infiltrate. Due to patient's coughing or wheezing, and also to cover for sore throat we will treat the Patient with azithromycin. I discussed that she can follow-up with her primary care doctor and also discharging the Patient for short course of steroids. All questions answered. - Lab Data Lab Results 12/22/19 Range/Units 13:32 Group A Strep Rapid Negative (Negative) - Radiology Data Radiology results: report reviewed Possible underlying COPD. Minimal passage the adjacent to the cardiac apex may represent lingular atelectasis or early lingular infiltrate. Disposition Clinical Impression: Pharyngitis, Pneumonia Disposition: HOME SELF-CARE Condition: Good Instructions (If sedation given, give patient instructions): Pharyngitis (ED), Community Acquired Pneumonia (ED) Additional Instructions: Patient advised to take meds as prescribed. Following up with her primary care physician. Patient advised to completely stop smoking. Also using [id number] medication to help with symptoms. Return to emergency department if any alarming signs or symptoms occur. Prescriptions: predniSONE 50 mg PO DAILY #5 tab Albuterol Inhaler [Ventolin Hfa Inhaler] 1 - 2 puff INHALATION RT-Q6H PRN #1 inhaler PRN Reason: Shortness Of Breath Azithromycin [Zithromax Z-pack] 250 mg PO DIRECTED #6 tab Is patient prescribed a controlled substance at d/c from ED?: No Referrals: Benito Hernandez MD [Primary Care Provider] - 1-2 days Time of Disposition: 15:32
[2019-12-22 15:47] VITALS: BP 147/96; PULSE 84; RESP 18; TEMP 97.9
== END 2019-12-22 15:46 | disposition home or self-care (01) ==
LOC: EC 13:11
DX: J18.9 Pneumonia, unspecified organism (principal); J02.9 Acute pharyngitis, unspecified; J44.9 Chronic obstructive pulmonary disease, unspecified; F17.200 Nicotine dependence, unspecified, uncomplicated; M19.90 Unspecified osteoarthritis, unspecified site; F41.9 Anxiety disorder, unspecified; F32.9 Major depressive disorder, single episode, unspecified; Z79.1 Long term (current) use of non-steroidal anti-inflammatories (NSAID); Z79.899 Other long term (current) drug therapy; Z79.51 Long term (current) use of inhaled steroids; Z91.048 Other nonmedicinal substance allergy status; Z91.013 Allergy to seafood
CPT/HCPCS: 94640; 87081; 87430; 71046; 96372; 99284; J2930

== ENCOUNTER → 2020-08-29 | Outpatient (CLI) | payer OTHER ==
--- NOTE | 2020-09-01 09:37 | MM ---
Reason for exam: screening (asymptomatic). Last mammogram was performed 3 years and 8 months ago. History: Patient is postmenopausal. Physical Findings: A clinical breast exam by your physician is recommended on an annual basis and results should be correlated with mammographic findings. MG Screening Mammo w CAD Bilateral CC and MLO view(s) were taken. Prior study comparison: December 20, 2016, bilateral MG screening mammo w CAD. September 04, 2015, bilateral MG screening mammo w CAD. The breast tissue is extremely dense which could obscure a lesion on mammography. Benign appearing bilateral calcifications. There is chronic nodularity in the left breast, stable. No significant changes when compared with prior studies. ASSESSMENT: Benign, BI-RAD 2 RECOMMENDATION: Routine screening mammogram of both breasts in 1 year.
== END | disposition home or self-care (01) ==
LOC: RADMAMWWP 08:39
PROVIDERS: ATTEND Obstetrics & Gynecology
DX: Z12.31 Encounter for screening mammogram for malignant neoplasm of breast (principal)
CPT/HCPCS: 77067

== ENCOUNTER → 2022-11-18 | Outpatient (CLI) | payer OTHER ==
--- NOTE | 2022-11-19 10:54 | XR ---
EXAMINATION TYPE: XR spine complete AP and Lat DATE OF EXAM: 11/18/2022 COMPARISON: NONE HISTORY: 57-year-old female M54.6, M54.2, M54.50 TECHNIQUE: 6 views FINDINGS: Cervical spine: Degenerative grade 1 anterolisthesis C6-C7. Some facet arthropathy throughout the cer vical spine noted. Disc spaces relatively maintained. No predental space widening or prevertebral sof t tissue swelling. Thoracic spine: Accentuated midthoracic kyphosis. Mild degenerative disc disease mid thoracic spine. Vertebral body heights are preserved and alignment is maintained. 12 rib-bearing thoracic vertebral b odies. All pedicles are visualized. Lumbar spine: Accentuated lumbar lordosis. Facet arthropathy mid to lower lumbar spine. Degenerative grade 1 retrolisthesis T12-L1, L1-L3, L2-L3. Vertebral body heights are preserved. IMPRESSION: 1. Cervical spine: Facet arthropathy. Degenerative grade 1 anterolisthesis at C6-C7. 2. Thoracic spine: Accentuated thoracic kyphosis and mild mid thoracic spine degenerative disc diseas e. No vertebral compression collapse or malalignment. 3. Lumbar spine: Degenerative grade 1 retrolisthesis T12-L1, L1-L2, and L2-L3. Accentuated lumbar kin dosis with hypertrophic facet arthropathy mid to lower lumbar spine. No vertebral compression collaps e.
== END | disposition home or self-care (01) ==
LOC: RADXRMAIN 14:38
PROVIDERS: ATTEND Nurse Practitioner Family
DX: M47.812 Spondylosis without myelopathy or radiculopathy, cervical region (principal); M51.34 Other intervertebral disc degeneration, thoracic region; M40.56 Lordosis, unspecified, lumbar region; M47.816 Spondylosis without myelopathy or radiculopathy, lumbar region; M43.12 Spondylolisthesis, cervical region; M43.15 Spondylolisthesis, thoracolumbar region
CPT/HCPCS: 72082

== ENCOUNTER → 2022-11-18 | Outpatient (CLI) | payer OTHER ==
--- NOTE | 2022-11-21 13:37 | MM ---
Reason for Exam: Screening (asymptomatic). Last mammogram was performed 2 year(s) and 2 month(s) ago. Patient History: Menarche at age 13. First Full-Term at age 19. Postmenopausal. Risk Values: Lyudmila 5 year model risk: 0.9%. NCI Lifetime model risk: 5.9%. Prior Study Comparison: 09/04/2015 Bilateral Screening Mammogram, [facility]. 12/20/2016 Bilateral Screening Mammogram, [facility]. 08/29/2020 Bilateral Screening Mammogram, [facility]. Tissue Density: The breast tissue is heterogeneously dense. This may lower the sensitivity of mammography. Findings: Analyzed By CAD. Benign bilateral oil cyst calcifications. Areas of asymmetric density remain unchanged. There is no suspicious group of microcalcifications or new suspicious mass in either breast. Overall Assessment: Benign, BI-RAD 2 Management: Screening Mammogram of both breasts in 1 year. 1. Patient should continue monthly self breast exams. 2. A clinical breast exam by your physician is recommended on an annual basis. 3. This exam should not preclude additional follow-up of suspicious palpable abnormalities. Electronically signed and approved by: Ap Orozco M.D. Radiologist
== END | disposition home or self-care (01) ==
LOC: RADMAMWWP 15:19
PROVIDERS: ATTEND Family Medicine
DX: Z12.31 Encounter for screening mammogram for malignant neoplasm of breast (principal); Z78.0 Asymptomatic menopausal state
CPT/HCPCS: 77067

== ENCOUNTER → 2023-08-29 | Outpatient (CLI) | payer OTHER ==
--- NOTE | 2023-08-29 08:42 | CTL ---
EXAMINATION TYPE: CT Low Dose Lung DATE OF EXAM ORDERED: 08/29/2023 HISTORY: Z87.891 hx tobacco use. Lung cancer screening. Current smoker, [address] DLP: 33.[address] CTDI: 0.9 mGy Automated exposure control for dose reduction was used. SCREENING VISIT: First screening visit COMPARISON: Chest radiograph 12/22/2019 TECHNIQUE: Low dose computed tomography scan was performed through the chest at 1 mm thick sections a nd reconstructed images in multiple planes at 1 mm and [address] DIAGNOSTIC QUALITY: Satisfactory FINDINGS: LUNG NODULES: Medial right lower lobe 2 mm also granuloma (series 6, image 29). No clinically signifi cant pulmonary nodules. LUNGS: COPD: Severity: None Fibrosis: Severity: None Lymph nodes: None Other findings: None RIGHT PLEURAL SPACE: Effusion: None Calcification: None Thickening: None Pneumothorax: None LEFT PLEURAL SPACE: Effusion: None Calcification: None Thickening: None Pneumothorax: None HEART: Heart Size: Normal Coronary Calcification: Moderate Pericardial Effusion: None OTHER FINDINGS: Upper abdomen: None Bony thorax: None Supraclavicular region: None Other: Enlarged right thyroid lobe. IMPRESSION: No clinically significant pulmonary nodule. CT LUNG RAD AND CT CHEST RECOMMENDATION: Lung-Rad 1 Negative: Continue annual screening with LDCT in 12 months. S Modifier (other clinically significant findings): None
== END | disposition home or self-care (01) ==
LOC: RADCTMAIN 07:59
PROVIDERS: ATTEND Internal Medicine
DX: Z12.2 Encounter for screening for malignant neoplasm of respiratory organs (principal); F17.210 Nicotine dependence, cigarettes, uncomplicated
CPT/HCPCS: 71271

== ENCOUNTER 2023-10-31 19:39 | Emergency (ER) | payer OTHER ==
--- NOTE | 2023-10-31 19:48 | ED ---
URI HPI - General Chief Complaint: Upper Respiratory Infection Stated Complaint: congested,headache Time Seen by Provider: 10/31/23 19:47 Source: patient Mode of arrival: ambulatory Limitations: no limitations - History of Present Illness Initial Comments: 58-year-old female presenting with chief complaint of URI-like symptoms ongoing for the last week. She complains of cough, congestion, sore throat, headache, ear pressure. Denies chest pain or difficulty breathing. No fevers or chills. No nausea, vomiting, diarrhea. No abdominal pain. No vision or hearing changes. No neck stiffness. - Related Data Home Medications Medication Instructions Recorded Confirmed Latanoprost Ophth [Xalatan 0.005%] 1 drops BOTH EYES HS 06/22/15 02/16/18 DULoxetine HCL [Cymbalta] 30 mg PO DAILY 02/19/16 02/16/18 Budesonide/Formoterol Fumarate 2 puff INHALATION BID 04/19/17 02/16/18 [Symbicort 160-4.5 Mcg Inhaler] Meloxicam [Mobic] 15 mg PO DAILY 02/16/18 02/16/18 oxyCODONE HCL/ACETAMINOPHEN 1 tab PO QID PRN 02/16/18 02/16/18 [Percocet 7.5-325 mg] Previous Rx's Medication Instructions Recorded Albuterol Inhaler [Ventolin Hfa 1 - 2 puff INHALATION RT-Q6H PRN 12/22/19 Inhaler] #1 inhaler Azithromycin [Zithromax Z-pack (6 250 mg PO DIRECTED #6 tab 12/22/19 tabs)] predniSONE 50 mg PO DAILY #5 tab 12/22/19 Amoxicillin 875 mg PO Q12HR #20 tablet 01/31/23 Allergies Allergy/AdvReac Type Severity Reaction Status Date / Time cat dander Allergy Unknown Verified 10/31/23 19:47 celery Allergy Unknown Verified 10/31/23 19:47 grass pollen Allergy Unknown Verified 10/31/23 19:47 tree and shrub pollen Allergy Unknown Verified 10/31/23 19:47 tree nut Allergy Unknown Verified 10/31/23 19:47 TUNA FISH Allergy Unknown Uncoded 12/22/19 13:23 Review of Systems ROS Statement: Those systems with pertinent positive or pertinent negative responses have been documented in the HPI. ROS Other: All systems not noted in ROS Statement are negative. Past Medical History Past Medical History: COPD, Osteoarthritis (OA) Additional Past Medical History / Comment(s): . History of Any Multi-Drug Resistant Organisms: None Reported Past Surgical History: Section, Orthopedic Surgery Additional Past Surgical History / Comment(s): left knee arthroscopy Past Anesthesia/Blood Transfusion Reactions: Postoperative Nausea & Vomiting (PONV) Past Psychological History: Anxiety, Depression Past Alcohol Use History: None Reported Past Drug Use History: None Reported - Past Family History Mother Family Medical History: No Reported History General Exam - General Exam Comments Initial Comments: Visual Physical Exam Vital signs reviewed General: Well-appearing, nontoxic, no acute distress. Head: Normocephalic, atraumatic Eyes: PERRLA, EOMI ENT: Airway patent Chest: Nonlabored breathing Skin: No visual rash, normal skin tone Neuro: Alert and oriented 3 Musculoskeletal: No gross abnormalities Limitations: no limitations General appearance: alert, in no apparent distress Head exam: Present: atraumatic, normocephalic, normal inspection Eye exam: Present: normal appearance, EOMI ENT exam: Present: normal exam, normal oropharynx, mucous membranes moist, TM's normal bilaterally Neck exam: Present: normal inspection, full ROM Respiratory exam: Present: normal lung sounds bilaterally. Absent: respiratory distress, wheezes, rales, rhonchi, stridor Cardiovascular Exam: Present: regular rate, normal rhythm, normal heart sounds. Absent: systolic murmur, diastolic murmur, rubs, gallop, clicks Neurological exam: Present: alert, oriented X3 Psychiatric exam: Present: normal affect, normal mood Skin exam: Present: warm, dry Course Vital Signs 10/31/23 10/31/23 19:43 22:55 Temperature 97.4 F L Pulse Rate 108 H 99 Respiratory 18 18 Rate Blood Pressure 124/77 122/87 O2 Sat by Pulse 95 95 Oximetry Medical Decision Making - Medical Decision Making Was pt. sent in by a medical professional or institution (, PA, CHEMICAL MIXER, urgent care, hospital, or fci...) When possible be specific @ -No Did you speak to anyone other than the patient for history (EMS, parent, family, police, friend...)? What history was obtained from this source @ -No Did you review nursing and triage notes (agree or disagree)? Why? @ -I reviewed and agree with nursing and triage notes Were old charts reviewed (outside hosp., previous admission, EMS record, old EKG, old radiological studies, urgent care reports/EKG's, fci records)? Report findings @ -No old charts were reviewed Differential Diagnosis (chest pain, altered mental status, abdominal pain women, abdominal pain men, vaginal bleeding, weakness, fever, dyspnea, syncope, headache, dizziness, GI bleed, back pain, seizure, CVA, palpatations, mental health, musculoskeletal)? @ -Differential includes influenza, RSV, Covid, group A strep, this is not an all inclusive list EKG interpreted by me (3pts min.). @ -As above X-rays interpreted by me (1pt min.). @ -None done CT interpreted by me (1pt min.). @ -None done U/S interpreted by me (1pt. min.). @ -None done What testing was considered but not performed or refused? (CT, X-rays, U/S, labs)? Why? @ -None What meds were considered but not given or refused? Why? @ -None Did you discuss the management of the patient with other professionals (professionals i.e. DrBritta, PA, CHEMICAL MIXER, lab, RT, psych nurse, social science analyst, braid cutter, teacher, protocol officer, case management assistant)? Give summary @ -No Was smoking cessation discussed for >3mins.? @ -No Was critical care preformed (if so, how long)? @ -No Were there social determinants of health that impacted care today? How? (Homelessness, low income, unemployed, alcoholism, drug addiction, transportation, low edu. Level, literacy, decrease access to med. care, care home, rehab)? @ -No Was there de-escalation of care discussed even if they declined (Discuss DNR or withdrawal of care, Hospice)? DNR status @ -No What co-morbidities impacted this encounter? (DM, HTN, Smoking, COPD, CAD, Cancer, CVA, ARF, Chemo, Hep., AIDS, mental health diagnosis, sleep apnea, morbid obesity)? @ -None Was patient admitted / discharged? Hospital course, mention meds given and route, prescriptions, significant lab abnormalities, going to OR and other pertinent info. @ -58-year-old female presenting with chief complaint of URI-like symptoms. History of physical exam were conducted. She is negative for influenza, RSV, Covid, group A strep. Patient is educated on today's findings and on supportive management with Motrin, Tylenol, and a decongestant such as Mucinex DM. Follow- up with PCP. Report back to ER with any new or worsening symptoms. Discussed return parameters and answered all questions. Patient conveyed verbal understanding and agreed to the plan. I discussed this case in detail with my attending Dr. Morgan Undiagnosed new problem with uncertain prognosis? @ -No Drug Therapy requiring intensive monitoring for toxicity (Heparin, Nitro, Insulin, Cardizem)? @ -No Were any procedures done? @ -No Diagnosis/symptom? @ -Sinusitis Acute, or Chronic, or Acute on Chronic? @ -Acute Uncomplicated (without systemic symptoms) or Complicated (systemic symptoms)? @ -Uncomplicated Side effects of treatment? @ -No Exacerbation, Progression, or Severe Exacerbation? @ -No Poses a threat to life or bodily function? How? (Chest pain, USA, SD, pneumonia, PE, COPD, DKA, ARF, appy, cholecystitis, CVA, Diverticulitis, Homicidal, Suicidal, threat to staff... and all critical care pts) @ -No - Lab Data Lab Results 10/31/23 10/31/23 Range/Units 19:48 19:48 Influenza Type A (PCR) Not Detected (Not Detectd) Influenza Type B (PCR) Not Detected (Not Detectd) RSV (PCR) Not Detected (Not Detectd) SARS-CoV-2 (PCR) Not Detected (Not Detectd) Group A Strep (PCR) NOT DETECTED (Not Detectd) Disposition Clinical Impression: Sinusitis Disposition: HOME SELF-CARE Condition: Good Instructions (If sedation given, give patient instructions): Sinusitis (ED) Additional Instructions: Follow-up with PCP. Report back to ER with any new or worsening symptoms. Take Motrin and Tylenol as needed for pain control. Take Mucinex DM to help with congestion and ear pressure. Is patient prescribed a controlled substance at d/c from ED?: No Referrals: Roberta Simmons MD [Primary Care Provider] - 1-2 days Time of Disposition: 22:49
[2023-10-31 19:51] VITALS: RESP 18; TEMP 97.4
[2023-10-31 23:07] VITALS: BP 122/87; PULSE 99
== END 2023-10-31 22:56 | disposition home or self-care (01) ==
LOC: EC 19:39
DX: J01.90 Acute sinusitis, unspecified (principal); J44.9 Chronic obstructive pulmonary disease, unspecified; M19.90 Unspecified osteoarthritis, unspecified site; Z86.59 Personal history of other mental and behavioral disorders; Z79.51 Long term (current) use of inhaled steroids; Z79.1 Long term (current) use of non-steroidal anti-inflammatories (NSAID); Z88.8 Allergy status to other drugs, medicaments and biological substances; Z91.010 Allergy to peanuts; Z20.822 Contact with and (suspected) exposure to COVID-19
CPT/HCPCS: 87636; 87651; 99283

== ENCOUNTER → 2024-03-06 | Outpatient (CLI) | payer OTHER ==
--- NOTE | 2024-03-08 18:46 | MM ---
Reason for Exam: Screening (asymptomatic). Last mammogram was performed 1 year(s) and 4 month(s) ago. Patient History: Menarche at age 13. First Full-Term at age 19. Postmenopausal. Risk Values: Lyudmila 5 year model risk: 0.9%. NCI Lifetime model risk: 5.7%. Prior Study Comparison: 12/20/2016 Bilateral Screening Mammogram, [facility]. 08/29/2020 Bilateral Screening Mammogram, [facility]. 11/18/2022 Bilateral MG screening mammo w CAD, [facility]. Tissue Density: The breasts are heterogeneously dense, which may obscure small masses. Findings: Analyzed By CAD. Chronic nodularity lateral left breast. Benign oil cyst calcifications in both sides. Areas of asymmetric density are unchanged. There is no suspicious group of microcalcifications or new suspicious mass in either breast. Overall Assessment: Benign, BI-RAD 2 Management: Screening Mammogram of both breasts in 1 year. . Patient should continue monthly self-breast exams. A clinical breast exam by your physician is recommended on an annual basis. This exam should not preclude additional follow-up of suspicious palpable abnormalities. Note on Lyudmila scores and lifetime risk: 1. A Lyudmila score greater than 3% is considered moderate risk. If this is the case, consider specialist referral to assess eligibility for a risk reducing agent. 2. If overall lifetime risk for the development of breast cancer is 20% or higher, the patient may qualify for future screening with alternating mammogram and breast MRI. Electronically signed and approved by: Ap Orozco M.D. Radiologist
== END | disposition home or self-care (01) ==
LOC: RADMAMWWP 12:36
PROVIDERS: ATTEND Family Medicine
DX: Z12.31 Encounter for screening mammogram for malignant neoplasm of breast (principal); Z78.0 Asymptomatic menopausal state
CPT/HCPCS: 77067